=== PATIENT | male | born 1975 | race Caucasian/White ===

== ENCOUNTER → 2017-01-21 | Outpatient (CLI) | payer OTHER ==
[2017-01-21 09:15] LABS: CALCIUM 9.1 mg/dL (8.5-10.1); CREATININE 1.1 mg/dL (0.7-1.3); GFR 73.8; POTASSIUM 4.2 mmol/L (3.5-5.1)
== END | disposition home or self-care (01) ==
LOC: LAB 08:38
PROVIDERS: ATTEND Internal Medicine Cardiovascular Disease
DX: E78.5 Hyperlipidemia, unspecified (principal)
CPT/HCPCS: 36415; 80048; 80061

== ENCOUNTER → 2017-08-05 | Outpatient (CLI) | payer OTHER ==
[2017-08-05 07:43] LABS: CALCIUM 9.4 mg/dL (8.5-10.1); CHOLESTEROL/HDL RATIO 6.5; CREATININE 1.2 mg/dL (0.7-1.3); GFR 66.4
== END | disposition home or self-care (01) ==
LOC: LAB 07:02
PROVIDERS: ATTEND Internal Medicine Cardiovascular Disease
DX: I10 Essential (primary) hypertension (principal); E78.5 Hyperlipidemia, unspecified
CPT/HCPCS: 36415; 80048; 80061

== ENCOUNTER 2017-09-12 07:16 | Emergency (ER) | payer OTHER ==
[~2017-09-12] VITALS: Ht 188 cm; Wt 122.5 kg
[2017-09-12] MEDS ORDERED: ORPHENADRINE CITRATE 60 MG/2 ML VIAL. IM ONE (07:45)
[2017-09-12] MEDS ORDERED: MORPHINE SULFATE 4 MG/ML DISP.SYRIN. IM ONE (07:45)
[2017-09-12] MEDS ORDERED: IBUP-1060 PO (07:48)
[2017-09-12] MEDS ORDERED: CYCL10TA2 PO (07:48)
[2017-09-12] MEDS ORDERED: HYDR-971 PO (07:48)
--- NOTE | 2017-09-12 07:48 | PHYS DOC ---
Past Medical History Past Medical History: A-Fib, Depression, Hypertension Past Surgical History: Other Additional Past Surgical Histo: shoulder surgery Additional Information: 1 cigarette daily Alcohol Use: None Drug Use: None Adult General Chief Complaint Chief Complaint: BACK PAIN OR INJURY [facility] HPI Patient is a 42 year old male presents to the emergency department with a history of right lower flank pain. Patient states he has been leaning over a car working on it yesterday when he went to get into his car this morning he developed severe right sided back pain. Patient denies loss of bowel or bladder. He is able to cross is his legs without difficulty. Patient has not taken anything for pain and discomfort. Patient appears to have muscle spasms while lying in the bed. Rates pain 08/27 Review of Systems Review of Systems Constitutional: Denies fever or chills [] Eyes: Denies change in visual acuity, redness, or eye pain [] HENT: Denies nasal congestion or sore throat [] Respiratory: Denies cough or shortness of breath [] Cardiovascular: No additional information not addressed in HPI [] GI: Denies abdominal pain, nausea, vomiting, bloody stools or diarrhea [] : Denies dysuria or hematuria [] Musculoskeletal: right lower back pain, denies joint pain Integument: Denies rash or skin lesions [] Neurologic: Denies headache, focal weakness or sensory changes [] Endocrine: Denies polyuria or polydipsia [] Current Medications Current Medications Current Medications Medications (Trade) Dose Ordered Sig/Tremaine Start Time Stop Time Status Last Admin Dose Admin Morphine Sulfate 4 mg 1X ONCE 09/12/17 07:45 09/12/17 07:46 DC 09/12/17 07:50 4 MG Orphenadrine Citrate (Norflex) 60 mg 1X ONCE 09/12/17 07:45 09/12/17 07:46 DC 09/12/17 07:51 60 MG Allergies Allergies Allergies Coded Allergies Type Severity Reaction Last Updated Verified No Known Drug Allergies 09/12/17 No Physical Exam Physical Exam Constitutional: Well developed, well nourished, no acute distress, non-toxic appearance. [] HENT: Normocephalic, atraumatic, bilateral external ears normal, oropharynx moist, no oral exudates, nose normal. [] Eyes: PERRLA, EOMI, conjunctiva normal, no discharge. [] Neck: Normal range of motion, no tenderness, supple, no stridor. [] Cardiovascular:Heart rate regular rhythm, no murmur [] Lungs & Thorax: Bilateral breath sounds clear to auscultation [] Abdomen: Bowel sounds normal, soft, no tenderness, no masses, no pulsatile masses. [] Skin: Warm, dry, no erythema, no rash. [] Back: right lower flank pain, No lumbar spine tenderness noted, no crepitus, no deformity no step-offs noted. Extremities: No tenderness, no cyanosis, no clubbing, ROM intact, no edema. Peripheral pulses 2+ cap refill brisk < 2 seconds. equal strength noted per lower extremities Neurologic: Alert and oriented X 3, normal motor function, normal sensory function, no focal deficits noted. [] Psychologic: Affect normal, judgement normal, mood normal. [] Current Patient Data Vital Signs Vital Signs Date Time Temp Pulse Resp B/P (MAP) Pulse Ox O2 Delivery O2 Flow Rate FiO2 09/12/17 07:56 65 20 126/58 (80) 96 Room Air 09/12/17 07:25 97.7 97.7 EKG EKG [] Radiology/Procedures Radiology/Procedures [] Course & Med Decision Making Course & Med Decision Making Pertinent Labs and Imaging studies reviewed. (See chart for details) Patient has taken his own ibuprofen 800 mg here in the department. Patient is attempting to find a ride home. Norflex and Morphine has been ordered. Patient will be discharged home in stable condition with recommendations for ice packs on 20 minutes and off 20 minutes several times day. Patient will be encouraged to take ibuprofen 800 mg every 8 hours with food. He will be provided with a prescription for ibuprofen, flexeril and norco. Patient was instructed that flexeril and norco will cause drowsiness do not take if you need to be alert and oriented. Patient was recommended to followup with primary care provider in 7-10 days. Signs and symptoms to return to the emergency department has been provided. All questions and concerns have been answered at patients bedside. He was provided with a work note for the next 2 days. Patient agrees with discharge instructions, treatment regimen and followup recommendations. [] Dragon Disclaimer Dragon Disclaimer This electronic medical record was generated, in whole or in part, using a voice recognition dictation system. Departure Departure Impression: Primary Impression: Strain of muscle, fascia and tendon of lower back, initial encounter Disposition: 01 HOME, SELF-CARE Condition: STABLE Referrals: HESHAM CROW MD (PCP) Patient Instructions: Back Pain, Adult, [id number], Muscle Strain, Easy-to- Read Additional Instructions: Activity as tolerated Medication as prescribed Ibuprofen should be taken with food to prevent stomach upset. If you do develop upset stomach please stop taking Flexeril and Pima will both cause drowsiness. Do NOT take if you need to be alert and oriented Ice packs on 20 minutes and off 20 minutes several times a day Followup with your primary care provider in 7-10 days if you continue to have pain Return to emergency department as needed for signs and symptoms that become worse. Scripts Cyclobenzaprine Hcl (CYCLOBENZAPRINE HCL) 10 Mg Tablet 1 TAB PO TID Y for MUSCLE SPASMS, #30 TAB Prov: FOREST RAVI APRN 09/12/17 Ibuprofen (IBUPROFEN) 800 Mg Tablet 800 MG PO PRN Q6HRS Y for INFLAMMATION, #30 TAB Prov: FOREST RAVI APRN 09/12/17 Hydrocodone/Apap 5-325 (NORCO 5-325 TABLET) 1 Each Tablet 1 TAB PO PRN Q6HRS Y for PAIN, #20 TAB 0 Refills Prov: FOREST RAVI APRN 09/12/17 FOREST RAVI APRN Sep 12, 2017 07:48
[2017-09-12 07:56] VITALS: BP 126/58
== END 2017-09-12 08:56 | disposition home or self-care (01) ==
LOC: ER 07:16
DX: S39.012A Strain of muscle, fascia and tendon of lower back, initial encounter (principal); I48.91 Unspecified atrial fibrillation; F32.9 Major depressive disorder, single episode, unspecified; I10 Essential (primary) hypertension; F17.210 Nicotine dependence, cigarettes, uncomplicated; X58.XXXA Exposure to other specified factors, initial encounter; Y93.89 Activity, other specified; Y92.89 Other specified places as the place of occurrence of the external cause; Y99.8 Other external cause status
CPT/HCPCS: 96372; 99284; J2270; J2360

== ENCOUNTER → 2018-09-05 | Outpatient (CLI) | payer OTHER ==
[~2018-09-05] MED LIST: CYCL10TA2 PO; HYDR-971 PO; IBUP-1060 PO
[2018-09-05 07:17] LABS: ALBUMIN 4.1 g/dL (3.4-5.0); CALCIUM 9.4 mg/dL (8.5-10.1); CREATININE 1.1 mg/dL (0.7-1.3); DIRECT BILIRUBIN 0.1 mg/dL (0.0-0.2); GFR 73.1; POTASSIUM 4.2 mmol/L (3.5-5.1); TOTAL BILIRUBIN 0.4 mg/dL (0.2-1.0); TOTAL PROTEIN 7.5 g/dL (6.4-8.2)
[2018-09-05 07:19] LABS: CHOLESTEROL/HDL RATIO 3.9
== END | disposition home or self-care (01) ==
LOC: LAB 06:22
PROVIDERS: ATTEND Internal Medicine Cardiovascular Disease
DX: I10 Essential (primary) hypertension (principal); E78.5 Hyperlipidemia, unspecified
CPT/HCPCS: 36415; 80048; 80061; 80076

== ENCOUNTER 2019-01-12 13:35 | Emergency (ER) | payer OTHER ==
[~2019-01-12] VITALS: Ht 188 cm; Wt 117.9 kg
[~2019-01-12 13:35] MED LIST changes: +HYDR-3164 PO; -HYDR-971 PO
[2019-01-12 13:58] VITALS: BP 169/97
[2019-01-12] MEDS ORDERED: silver sulfADIAZINE 1% CREAM 25GM TUBE. TP ONE ×2 (14:31→14:45)
--- NOTE | 2019-01-12 14:33 | PHYS DOC ---
Past Medical History Past Medical History: A-Fib, Depression, Hypertension Past Surgical History: Other Additional Past Surgical Histo: shoulder surgery Alcohol Use: None Drug Use: None Adult General Chief Complaint Chief Complaint: BURN/SMOKE INHALATION HPI HPI Patient is a 43 year old male who presents with a burn to his right thigh that occurred at approximately 1 hour prior to arrival. The patient was working on a hot water heater/boiler system within some of the boiling water shot out from the tubing striking his thigh. He is a [employer] employee and this is a job- related injury. He is not up-to-date on his tetanus booster. Review of Systems Review of Systems Constitutional: Denies fever or chills [] Respiratory: Denies cough or shortness of breath [] Cardiovascular: No additional information not addressed in HPI [] GI: Denies abdominal pain, nausea, vomiting, bloody stools or diarrhea [] : Denies dysuria or hematuria [] Musculoskeletal: Denies back pain or joint pain [] Integument: See history of present illness Neurologic: Denies headache, focal weakness or sensory changes [] Endocrine: Denies polyuria or polydipsia [] All other systems were reviewed and found to be within normal limits, except as documented in this note. Current Medications Current Medications Current Medications Medications (Trade) Dose Ordered Sig/Tremaine Start Time Stop Time Status Last Admin Dose Admin Diphtheria/ Tetanus/Acell Pertussis (Boostrix) 0.5 ml ONCE ONCE 01/12/19 14:45 01/12/19 14:46 DC 01/12/19 15:02 0.5 ML Silver Sulfadiazine (Silvadene) 1 kale 1X ONCE 01/12/19 14:45 01/12/19 14:46 DC 01/12/19 14:57 1 KALE Allergies Allergies Allergies Coded Allergies Type Severity Reaction Last Updated Verified No Known Drug Allergies 09/12/17 No Physical Exam Physical Exam Constitutional: Well developed, well nourished, no acute distress, non-toxic appearance. [] Cardiovascular:Heart rate regular rhythm, no murmur [] Lungs & Thorax: Bilateral breath sounds clear to auscultation [] Abdomen: Bowel sounds normal, soft, no tenderness, no masses, no pulsatile masses. [] Skin: 8 cm x 7 cm area of erythema with 2 areas that appear to be blisters forming, no break in the skin noted Neurologic: Alert and oriented X 3, normal motor function, normal sensory function, no focal deficits noted. [] Psychologic: Affect normal, judgement normal, mood normal. [] Current Patient Data Vital Signs Vital Signs Date Time Temp Pulse Resp B/P (MAP) Pulse Ox O2 Delivery O2 Flow Rate FiO2 01/12/19 13:58 97.6 93 16 169/97 (121) 97 Room Air 97.6 EKG EKG [] Radiology/Procedures Radiology/Procedures [] Course & Med Decision Making Course & Med Decision Making Pertinent Labs and Imaging studies reviewed. (See chart for details) The patient's wounds were dressed and a tetanus booster was administered in the emergency department. Dragon Disclaimer Dragon Disclaimer This electronic medical record was generated, in whole or in part, using a voice recognition dictation system. Departure Departure Impression: Primary Impression: Burn Additional Impression: Need for tetanus booster Disposition: 01 HOME, SELF-CARE Condition: STABLE Referrals: HESHAM CROW MD (PCP) Patient Instructions: Burn Care Additional Instructions: Use the cream to treat the burned skin. Follow-up with your primary care provider or Workmen's Compensation physician as ordered by the facility. Problem Qualifiers GUEVARA LOPEZ APRN Jan 12, 2019 14:33
[2019-01-12] MEDS ORDERED: DIPHTH,PERTUSS(ACELL),TET TOX 0.5 ML DISP.SYRIN. VAX IM ONE (14:45)
== END 2019-01-12 15:08 | disposition home or self-care (01) ==
LOC: ER 13:35
DX: T24.211A Burn of second degree of right thigh, initial encounter (principal); I10 Essential (primary) hypertension; I48.91 Unspecified atrial fibrillation; X12.XXXA Contact with other hot fluids, initial encounter; Y93.89 Activity, other specified; Y92.69 Other specified industrial and construction area as the place of occurrence of the external cause; Y99.0 Civilian activity done for income or pay
CPT/HCPCS: 16020; 90471; 90715; 99284

== ENCOUNTER → 2019-08-06 | Outpatient (CLI) | payer OTHER ==
[2019-07-23 05:24] VITALS: BP 158/102
[~2019-08-06] MED LIST changes: +METH4TAB2 PO
--- NOTE | 2019-08-06 15:28 | KCIC ---
EXAM: AP, lateral and lumbosacral spot views of the lumbar spine DATE: 08/06/2019 12:00 AM INDICATION: Acute low back pain COMPARISON: No Prior FINDINGS: 6 nonrib-bearing lumbar-type vertebral bodies are seen. Vertebral body heights are preserved. Mild rightward curvature of the lumbar spine. No spondylolisthesis. Mild straightening of the normal lumbar lordosis. Mild L5-S1 disc height loss. Small anterior endplate osteophytes are seen at L1-2, L2-3 and L5-S1. Mild facet degenerative change L2-3 and below. IMPRESSION: 1. Multilevel spondylosis as above 2. Negative acute fracture or subluxation. Electronically signed by: Benji Mendoza MD (08/06/2019 3:26 PM) [facility]
== END | disposition home or self-care (01) ==
LOC: KCIC 08:11
PROVIDERS: ATTEND Nurse Practitioner Gerontology
DX: M47.816 Spondylosis without myelopathy or radiculopathy, lumbar region (principal); M25.78 Osteophyte, vertebrae; M40.46 Postural lordosis, lumbar region
CPT/HCPCS: 72100

== ENCOUNTER → 2019-08-10 | Outpatient (CLI) | payer OTHER ==
[2019-07-23 05:24] VITALS: BP 158/102
--- NOTE | 2019-08-10 12:24 | RAD ---
MRI Lumbar Spine without contrast History: Low back pain, right hip pain for one month Technique: Multiplanar, multi sequential noncontrast MR imaging was performed of the lumbar spine. Comparison: None Findings: Lumbar vertebral body stature is overall maintained. There is minimal grade 1 anterior spondylolisthesis L5-S1. Findings are suspicious for L5 spondylolysis bilaterally although somewhat difficult to accurately evaluate on this exam. Vertebral body stature is overall maintained. There is nonspecific relative decreased signal of the marrow on T1 and T2 sequences, no significant marrow edema. Conus terminates near L1-2. L1-L2: Spinal canal and neural foramina are adequate. There is negligible disc osteophyte complex. L2-L3: There is mild prominence of posterior epidural fat centrally. There is mild facet hypertrophic change. Spinal canal and neural foramina are adequate. There is negligible disc osteophyte complex and bulge. L3-L4: There is negligible disc osteophyte complex. Spinal canal and neural foramina are adequate. There is mild facet degenerative change. L4-L5: There is small extrusion extending slightly above the intervertebral disc space in the right paracentral region, up to about 4 mm greatest AP dimension. There is mild indentation upon the ventral thecal sac greater in the right lateral recess with mild right lateral recess stenosis, near descending right L5 nerve root without significant displacement. Neural foramina are adequate. There is minimal facet degenerative change. L5-S1: Spinal canal is adequate. There is disc osteophyte complex and protrusion in the inferior right neural foramen, contact of the exiting right L5 nerve root in the distal neural foramen and proximal extraforaminal region, overall moderate narrowing of the right neural foramen greater distally. Left neural foramen is adequate. Impression: 1. There is disc osteophyte complex and protrusion in the inferior right L5-S1 neural foramen with contact exiting right L5 nerve root greater in the distal neural foramen and proximal extraforaminal region. There is small extrusion extending above the L4-5 intervertebral disc space in the right paracentral region with mild right lateral recess stenosis, near descending right L5 nerve root. 2. There is relative decreased signal of the marrow on T1 and T2 sequences, nonspecific findings which could be associated with hyperplastic or residual red marrow, not associated with significant marrow edema. 3. Findings are suspicious for L5 spondylolysis although somewhat difficult to accurately evaluate, better assessed with CT if needed. There is negligible anterior spondylolisthesis L5-S1. Electronically signed by: Arden Hinojosa MD (08/10/2019 12:21 PM) [id number]
== END | disposition home or self-care (01) ==
LOC: MRI 08:25
PROVIDERS: ATTEND Nurse Practitioner Gerontology
DX: M43.17 Spondylolisthesis, lumbosacral region (principal); M51.17 Intervertebral disc disorders with radiculopathy, lumbosacral region; M47.26 Other spondylosis with radiculopathy, lumbar region; M25.78 Osteophyte, vertebrae; M25.551 Pain in right hip
CPT/HCPCS: 72148

== ENCOUNTER → 2019-08-27 | Outpatient (CLI) | payer OTHER ==
[2019-07-23 05:24] VITALS: BP 158/102
[~2019-08-27] MED LIST changes: +BUSP5TAB PO; +DILT240C2 PO; +LISI-130 PO
--- NOTE | 2019-08-27 13:13 | PAIN ---
DATE OF SERVICE: 08/27/2019 INITIAL CONSULTATION FOR PAIN CLINIC CHIEF COMPLAINT: Low back and right lower extremity pain. HISTORY OF PRESENT ILLNESS: This is a 44-year-old male who presents with history of pain in the low back and right leg for about 7 years. No specific injury or action he is aware of, but the pain has been worse over the past several months to the point where he has had to decrease his activities at work, although the pain is subsiding with some rest and stretching, which he is doing several times daily. The patient reports it is still significant into the low back, into the right posterior gluteus and posterior thigh. The patient reports it is constant, sharp, stabbing, shooting at times, intermittent in intensity but always present, burning and aching in the low back and right leg. The patient has had chiropractic treatment, which helped as well but was fairly short-lived. The patient reports the pain is less now, mostly feels it only when he is sitting down for long periods of greater than 30-40 minutes. First walking in the morning, the patient reports pain tends to radiate into the groin area as well as into the posterior gluteus and thigh on the right side, worse in the morning once again. The patient reports it occasionally wakes him from sleep more so in the last week or so, has been getting better, does not awaken him over the past several days. It does not affect his bowel or bladder control, but does affect his ability to walk and/or stand or sit for prolonged periods. The patient has tried oral steroids which helped, hydrocodone which does help to a moderate extent, has tried naproxen which does not help significantly at all. The patient did have an MRI scan of the lumbar spine showing disk osteophyte complex and protrusion in the inferior right L5-S1 neural foramen with contact exiting right L5 nerve roots, greater than distal neural foramen and proximal extraforaminal origin with a small extrusion extending above the L4-L5 intervertebral space in the right paracentral region with mild right lateral recess stenosis near the descending right L5 nerve root as well. The patient rates his disability rating from 0-10, 10 being the worst, is a 9 with family, home responsibilities, recreation, social activity and occupational activities, 5 with sexual behavior, 7 with self-care and 0 with life support activities. PAST MEDICAL HISTORY: Significant for hypertension, dizziness, gastroesophageal reflux, atrial fibrillation, hyperlipidemia, arthritis and anxiety. PREVIOUS SURGERY: Includes left shoulder rotator cuff repair. CURRENT MEDICATIONS: Include ibuprofen, Cardizem and lisinopril. ALLERGIES: The patient has no known drug allergies. FAMILY HISTORY: Significant for heart disease. SOCIAL HISTORY: The patient drinks 1-3 alcoholic drinks daily, does not smoke. Not using illegal, illicit or recreational drugs or other tobacco products. He is , lives with his spouse and lives in [place], [place]. 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 REVIEW OF SYSTEMS: The patient's review of systems is positive for those items as mentioned in history of present illness. All systems reviewed and otherwise negative. It is complete, full and well documented on the patient's chart. PHYSICAL EXAMINATION: VITAL SIGNS: The patient's blood pressure is 149/96, pulse 68, respirations 16, temperature 97.6 degrees Fahrenheit, height is 6 feet 2 inches, weight is 279 pounds. GENERAL: The patient is awake, alert, oriented, appropriate, very pleasant demeanor. HEENT: Exam shows normocephalic, atraumatic. Extraocular movements are intact and symmetrical. Oral cavity: Mucous membranes are moist and pink. The patient wears eyeglasses. NECK: Shows anterior throat supple without palpable lymphadenopathy noted. Swallow reflex is symmetrical. CHEST: Shows normal on inspection. Breath sounds clear to auscultation bilaterally. HEART: Shows S1, S2 clear. No murmurs auscultated. ABDOMEN: Soft, nontender, nondistended. No palpable organomegaly is noted. No rebound or guarding demonstrated. BACK: Shows spine grossly in the midline. Slight exaggeration of thoracic kyphosis, some minor flattening of lumbar lordotic curvature. Lumbar paraspinous muscle shows symmetrical on inspection, on palpation shows some moderate tenderness diffusely in the bilateral lower and middle lumbar paraspinous muscles, but only diffusely without radiation. The patient has good rotational motion of lumbar spine, both laterally as well as extension and flexion without significant increase in pain. No tenderness over the spinous processes, sacrum or sacroiliac regions with direct palpation. EXTREMITIES: The patient's lower extremities show deep tendon reflexes 2+ in the patellar, 1+ in tendo-calcaneus tendons. Motor exam is strong with 5/5 dorsiflexion, extension, quadriceps and hamstring flexion and equal bilaterally. Peripheral pulses are 1+ posterior tibia. No peripheral edema is noted. Straight leg raise noted to be negative for reproduction of radicular pain bilaterally as his Gaenslen's and Deric's maneuvers negative bilaterally as well. The patient is able to stand, stand on toes without significant difficulty or loss of balance, walks with normal appearing gait for short distance in the office, not using any assistive devices to ambulate. SKIN: The patient's skin shows warm and dry, good turgor. No edema. No sores, rashes or bruising throughout. IMPRESSION: 1. This is a 44-year-old male with a 7-year history but of low back pain, worse over the past few months radiating to the right lower extremity in a radicular fashion. 2. MRI scan of lumbar spine as noted. 3. Hypertension. 4. Arthritis. PLAN: Options were discussed with the patient including conservative medical managements, physical therapies and interventional techniques. He would like to pursue interventional techniques, but he is doing quite a bit better at this time. I will give him some more time to increase stretching and strengthening exercises, also walking and daily activities. We discussed proper body mechanics with lifting and reaching positioning with requirements at work and the patient will try these first with persistent stretching. We discussed possible physical therapy referral as well as possible epidural steroid injection. The patient will try the stretching and strengthening on his own first and follow up at this point on an as needed basis. SAMMY CASILLAS MD DR: KRISTINA/suzette JOB#: [id number] / [id number] HESHAM Mcdonald MD
== END | disposition home or self-care (01) ==
LOC: PNCL 07:50
PROVIDERS: ATTEND Anesthesiology
DX: M54.16 Radiculopathy, lumbar region (principal); I10 Essential (primary) hypertension; M19.90 Unspecified osteoarthritis, unspecified site
CPT/HCPCS: G0463

== ENCOUNTER 2019-09-01 05:04 | Emergency (ER) | payer OTHER ==
[~2019-09-01] VITALS: Ht 188 cm; Wt 122.5 kg
[~2019-09-01 05:04] MED LIST changes: -BUSP5TAB PO
--- NOTE | 2019-09-01 05:18 | PHYS DOC ---
Past Medical History Past Medical History: A-Fib, Depression, Hypertension Past Surgical History: Other Additional Past Surgical Histo: left rotator cuff repair Alcohol Use: Occasionally Drug Use: None Adult General Chief Complaint Chief Complaint: Palpitations HPI HPI Patient is a 44-year-old male who presents with complaint of palpitations that had started yesterday. Patient states that it felt like his heart was beating out of his chest. He denies any actual chest pain associated with the symptoms. Patient is concerned because he has a history of atrial fibrillation and yesterday he had checked his heart rate and it was running as high as the 120s. Currently he denies any palpitations. He does indicate he has a history of anxiety and is feeling a little bit anxious this morning due to concern about going back in atrial fibrillation.[] Review of Systems Review of Systems Constitutional: Denies fever or chills [] Respiratory: Denies cough or shortness of breath [] Cardiovascular: No additional information not addressed in HPI [] GI: Denies abdominal pain, nausea, vomiting or diarrhea [] Neurologic: Denies headache, focal weakness or sensory changes [] All other systems were reviewed and found to be within normal limits, except as documented in this note. Current Medications Current Medications Current Medications Medications (Trade) Dose Ordered Sig/Tremaine Start Time Stop Time Status Last Admin Dose Admin Ketorolac Tromethamine (Toradol 30mg Vial) 30 mg 1X ONCE 09/01/19 06:00 09/01/19 06:01 09/01/19 05:37 30 MG Allergies Allergies Allergies Coded Allergies Type Severity Reaction Last Updated Verified No Known Drug Allergies 09/12/17 No Physical Exam Physical Exam Constitutional: Well developed, well nourished, no acute distress, non-toxic appearance. [] HENT: Normocephalic, atraumatic, bilateral external ears normal, oropharynx moist, no oral exudates, nose normal. [] Eyes: PERRLA, EOMI, conjunctiva normal, no discharge. [] Neck: Normal range of motion, no tenderness, supple, no stridor. [] Cardiovascular: Regular rate and rhythm[] Lungs & Thorax: Bilateral breath sounds clear to auscultation [] Abdomen: Bowel sounds normal, soft, no tenderness. [] Skin: Warm, dry, no erythema, no rash. [] Extremities: No tenderness, no cyanosis, no clubbing, ROM intact, no edema. [] Neurologic: Alert and oriented X 3, no focal deficits noted. [] Current Patient Data Vital Signs Vital Signs Date Time Temp Pulse Resp B/P (MAP) Pulse Ox O2 Delivery O2 Flow Rate FiO2 09/01/19 05:15 98.1 100 10 163/91 (115) 98 Room Air 98.1 Lab Values Laboratory Tests Test 09/01/19 05:11 White Blood Count 5.7 x10^3/uL (4.0-11.0) Red Blood Count 5.53 x10^6/uL (4.30-5.70) Hemoglobin 16.1 g/dL (13.0-17.5) Hematocrit 46.4 % (39.0-53.0) Mean Corpuscular Volume 84 fL (79-100) Mean Corpuscular Hemoglobin 29 pg (25-35) Mean Corpuscular Hemoglobin Concent 35 g/dL (31-37) Red Cell Distribution Width 13.0 % (11.5-14.5) Platelet Count 271 x10^3/uL (140-400) Neutrophils (%) (Auto) 54 % (31-73) Lymphocytes (%) (Auto) 32 % (24-48) Monocytes (%) (Auto) 14 % (0-9) H Eosinophils (%) (Auto) 1 % (0-3) Basophils (%) (Auto) 1 % (0-3) Neutrophils # (Auto) 3.1 x10^3/uL (1.8-7.7) Lymphocytes # (Auto) 1.8 x10^3/uL (1.0-4.8) Monocytes # (Auto) 0.8 x10^3/uL (0.0-1.1) Eosinophils # (Auto) 0.0 x10^3/uL (0.0-0.7) Basophils # (Auto) 0.0 x10^3/uL (0.0-0.2) Sodium Level 141 mmol/L (136-145) Potassium Level 3.8 mmol/L (3.5-5.1) Chloride Level 103 mmol/L (98-107) Carbon Dioxide Level 30 mmol/L (21-32) Anion Gap 8 (6-14) Blood Urea Nitrogen 15 mg/dL (8-26) Creatinine 1.2 mg/dL (0.7-1.3) Estimated GFR (Cockcroft-Gault) 65.8 BUN/Creatinine Ratio 13 (6-20) Glucose Level 100 mg/dL (70-99) H Calcium Level 9.7 mg/dL (8.5-10.1) Magnesium Level 1.9 mg/dL (1.8-2.4) Total Bilirubin 0.6 mg/dL (0.2-1.0) Aspartate Amino Transferase (AST) 28 U/L (15-37) Alanine Aminotransferase (ALT) 46 U/L (16-63) Alkaline Phosphatase 55 U/L (46-116) Troponin I Quantitative < 0.017 ng/mL (0.000-0.055) Total Protein 8.4 g/dL (6.4-8.2) H Albumin 4.6 g/dL (3.4-5.0) Albumin/Globulin Ratio 1.2 (1.0-1.7) Laboratory Tests 09/01/19 05:11 Laboratory Tests 09/01/19 05:11 EKG EKG [] Interpretation Time: EKG demonstrates normal sinus rhythm with rate of 96. Radiology/Procedures Radiology/Procedures [] Impressions: Chest x-ray demonstrates no acute process. Course & Med Decision Making Course & Med Decision Making Pertinent Labs and Imaging studies reviewed. (See chart for details) [] Dragon Disclaimer Dragon Disclaimer This electronic medical record was generated, in whole or in part, using a voice recognition dictation system. Departure Departure Impression: Primary Impression: Palpitations Additional Impression: Headache Disposition: 01 HOME, SELF-CARE Condition: STABLE Referrals: HESHAM CROW MD (PCP) Patient Instructions: Headache, FAQs, Palpitations Problem Qualifiers Additional Impression: Headache Headache type: tension-type Headache chronicity pattern: unspecified pattern Intractability: not intractable Qualified Codes: G44.209 - Tension-type headache, unspecified, not intractable CARLOS RIVERA Jr. DO Sep 01, 2019 05:18
[2019-09-01 05:23] LABS: BASO % 1 % (0-3); EOS % 1 % (0-3); HEMATOCRIT 46.4 % (39.0-53.0); HEMOGLOBIN 16.1 g/dL (13.0-17.5); LYMPH # 1.8 x10^3/uL (1.0-4.8); LYMPH % 32 % (24-48); MEAN CORPUSCULAR HEMOGLOBIN 29 pg (25-35); MEAN CORPUSCULAR HGB CONC 35 g/dL (31-37); MEAN CORPUSCULAR VOLUME 84 fL (79-100); MONO # 0.8 x10^3/uL (0.0-1.1); MONO % 14 % (0-9); NEUT # 3.1 x10^3/uL (1.8-7.7); NEUT % 54 % (31-73); PLATELET COUNT 271 x10^3/uL (140-400); RED BLOOD COUNT 5.53 x10^6/uL (4.30-5.70); WHITE BLOOD COUNT 5.7 x10^3/uL (4.0-11.0)
[2019-09-01 05:33] LABS: CALCIUM 9.7 mg/dL (8.5-10.1); CREATININE 1.2 mg/dL (0.7-1.3); GFR 65.8; POTASSIUM 3.8 mmol/L (3.5-5.1)
[2019-09-01 05:39] LABS: ALBUMIN 4.6 g/dL (3.4-5.0); ALBUMIN/GLOBULIN RATIO 1.2 (1.0-1.7); MAGNESIUM 1.9 mg/dL (1.8-2.4); TOTAL BILIRUBIN 0.6 mg/dL (0.2-1.0); TOTAL PROTEIN 8.4 g/dL (6.4-8.2)
[2019-09-01 05:40] VITALS: BP 138/78
--- NOTE | 2019-09-01 05:44 | EKG ---
[facility] [address] [place] [address] Test Date: 2019-09-01 Test Time: 05:06:14 Pat Name: CLAIRE CARRILLO Department: Room: Gender: M Hide Paster: : 1975 Requested By: CARLOS RIVERA Order Number: [id number] Reading MD: Measurements Intervals [place] Rate: 96 P: 0 AL: 138 QRS: 92 QRSD: 102 T: 12 QT: 326 QTc: 413 Interpretive Statements SINUS RHYTHM RIGHTWARD AXIS QRS(T) CONTOUR ABNORMALITY CONSIDER ANTEROLATERAL MYOCARDIAL DAMAGE POSSIBLY ABNORMAL ECG RI6.01 No previous ECG available for comparison
[2019-09-01] MEDS ORDERED: KETOROLAC 30 MG/ML VIAL. IVP ONE (06:00)
[2019-09-01] MEDS ORDERED: BUSP5TAB PO (06:01)
--- NOTE | 2019-09-01 06:14 | RAD ---
Chest AP portable at 0547: Reason for examination: Palpitations tonight. The heart size is upper normal. Mediastinum is unremarkable. Lung wiley show multiple small nodules consistent with calcified granuloma. There are no consolidated infiltrates or pleural effusions. No acute bony abnormalities are seen. Impression: Multiple small nodular densities bilaterally consistent with probable granuloma. Electronically signed by: Chrissie Rider MD (09/01/2019 6:12 AM) [facility]
== END 2019-09-01 06:07 | disposition home or self-care (01) ==
LOC: ER 05:04
DX: R00.2 Palpitations (principal); G44.209 Tension-type headache, unspecified, not intractable; F41.9 Anxiety disorder, unspecified; F32.9 Major depressive disorder, single episode, unspecified; I10 Essential (primary) hypertension; I48.91 Unspecified atrial fibrillation
CPT/HCPCS: 36415; 71045; 80053; 83735; 84484; 85025; 93005; 96374; 99285; J1885

== ENCOUNTER → 2020-06-08 | Outpatient (CLI) | payer OTHER ==
[~2020-06-08] MED LIST changes: +BUSP5TAB PO
== END | disposition home or self-care (01) ==
LOC: LAB 13:08
PROVIDERS: ATTEND Internal Medicine Pulmonary Disease
DX: Z20.828 Contact with and (suspected) exposure to other viral communicable diseases (principal)
CPT/HCPCS: U0003-CS

== ENCOUNTER → 2020-07-13 | Outpatient (CLI) | payer OTHER | LOC: LAB 15:35 | PROVIDERS: ATTEND Internal Medicine Pulmonary Disease | DX: U07.1 COVID-19 (principal) | CPT/HCPCS: U0003-CS ==

== ENCOUNTER → 2020-12-15 | Day surgery (SDC) | payer OTHER ==
[~2020-12-15] MED LIST changes: +LIDOCAINE 1%/EPI 1:100,000 20 ML VIAL. INJ ONE
[2020-12-15 10:52] VITALS: BP 143/91
--- NOTE | 2020-12-15 12:51 | PDOC4 ---
Operative Note Operative Note Operative Note: Preoperative Diagnosis: Forehead nodule Postoperative Diagnosis: Same Procedure: Excision of forehead nodule Surgeon: Gamal Anesthesia: Local EBL: 20 mL Specimen: Forehead nodule to pathology Drains: None Complications: None Indication: The patient is a 45-year-old male who is referred with a bothersome left forehead nodule. On exam it seems cystic in nature. He requests excision. The risks of surgery were discussed which include bleeding, infection, recurrence, pain, potential need for additional surgery procedure. He understands and would like to proceed. Description: The patient was taken to the procedure room and placed supine on the table. The left forehead was prepped with Betadine and draped in a standard surgical manner. The skin was infiltrated with 1% lidocaine with epinephrine. An incision was made directly overlying the cystic mass. Sharp dissection was carried down to subcutaneous tissues. The mass was identified and did appear cystic in nature. This was excised from the surrounding tissue with sharp dissection and sent to pathology. The mass measured approximately 1 x 1.5 cm. A few small bleeding spots were controlled with cautery. Hemostasis was then good. The skin was approximated with 4 Monocryl and a Steri-Strip was applied. The patient tolerated the procedure well and was discharged. GISSELLE YORK MD Dec 15, 2020 12:51
--- NOTE | 2020-12-20 08:45 | PATHOLOGY ---
[facility] Accession Number: [id number] . 01 Material submitted: . forehead - FOREHEAD MASS . 01 Clinical history: . EXCISION OF FOREHEAD MASS . 02 Diagnosis: Segments of fibroadipose and skeletal muscle tissue, forehead mass excision: - Lipoma. . ([facility]:mm; 12/19/2020) [facility] 12/19/2020 1622 Local . 02 Comment: There is no evidence of malignancy. . ([facility]:mm; 12/19/2020) . 02 Electronically signed: . David Thompson MD, Pathologist NPI- [id number] . 01 Gross description: . Received in formalin labeled "Capp, Marlon, forehead mass" are 3 fragments of yellow-willis soft tissue measuring in aggregate 2.3 x 1.2 x 0.5 cm. The specimen is submitted entirely without sectioning in A1. ([facility]; 12/17/2020) [facility] 12/18/2020 0824 Local . 02 Pathologist provided ICD-10: D17.39 . 02 CPT . 092186 Specimen Comment: A courtesy copy of this report has been sent to [phone], [phone] Specimen Comment: [id number] Specimen Comment: Report sent to DR YORK / DR CROW Performed at: 01 [facility] [address], [place] [id number] MD Dionisio Sharp MD Phone: [phone] Performed at: 02 [facility] [address] [place], [place] [id number] MD David Thompson MD Phone: [phone]
== END | disposition home or self-care (01) ==
LOC: SURG 10:09
PROVIDERS: ATTEND Surgery
DX: R22.0 Localized swelling, mass and lump, head (principal); D17.39 Benign lipomatous neoplasm of skin and subcutaneous tissue of other sites; I48.91 Unspecified atrial fibrillation; I10 Essential (primary) hypertension; K21.9 Gastro-esophageal reflux disease without esophagitis; M19.90 Unspecified osteoarthritis, unspecified site; F41.9 Anxiety disorder, unspecified; Z87.891 Personal history of nicotine dependence; Z20.822 Contact with and (suspected) exposure to COVID-19; Z79.899 Other long term (current) drug therapy; Z98.890 Other specified postprocedural states; Z72.89 Other problems related to lifestyle
CPT/HCPCS: 21011; 87426; 88304; C9803; J3490; U0003

== ENCOUNTER 2021-02-07 13:00 | Emergency (ER) | payer OTHER ==
[~2021-02-07] VITALS: Ht 188 cm; Wt 126.0 kg
[~2021-02-07 13:00] MED LIST changes: -LIDOCAINE 1%/EPI 1:100,000 20 ML VIAL. INJ ONE
[2021-02-07 13:42] LABS: BASO % 1 % (0-3); EOS % 1 % (0-3); HEMATOCRIT 42.6 % (39.0-53.0); HEMOGLOBIN 14.4 g/dL (13.0-17.5); LYMPH # 1.8 x10^3/uL (1.0-4.8); LYMPH % 26 % (24-48); MEAN CORPUSCULAR HEMOGLOBIN 29 pg (25-35); MEAN CORPUSCULAR HGB CONC 34 g/dL (31-37); MEAN CORPUSCULAR VOLUME 84 fL (79-100); MONO # 0.9 x10^3/uL (0.0-1.1); MONO % 13 % (0-9); NEUT % 60 % (31-73); PLATELET COUNT 262 x10^3/uL (140-400); RED BLOOD COUNT 5.05 x10^6/uL (4.30-5.70); RED CELL DISTRIBUTION WIDTH 13.2 % (11.5-14.5); WHITE BLOOD COUNT 6.7 x10^3/uL (4.0-11.0)
[2021-02-07 13:43] LABS: BILIRUBIN,URINE NEGATIVE (NEG); CLARITY,URINE CLEAR; COLOR,URINE YELLOW; NITRITE,URINE NEGATIVE (NEG); PH,URINE 5.5 (<5.0-8.0); PROTEIN,URINE NEGATIVE (NEG-TRACE); UROBILINOGEN,URINE 0.2 mg/dL (0.2 mg/dL)
[2021-02-07 13:52] LABS: HYALINE CASTS, URINE OCCASIONAL /HPF
[2021-02-07 13:54] LABS: RBC,URINE RARE /HPF (0-2); WBC,URINE RARE /HPF (0-4)
[2021-02-07 13:55] LABS: BACTERIA,URINE 0 /HPF (0-FEW)
--- NOTE | 2021-02-07 14:01 | RAD ---
AP chest. HISTORY: Chest pain AP view was taken of the chest. Lungs are clear. Heart is normal in size. There is no pleural effusio n. There are granulomatous calcifications. 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 IMPRESSION: 1. No acute chest disease. Electronically signed by: Hernan Kim MD (02/07/2021 1:58 PM) [facility]
[2021-02-07 14:03] LABS: CALCIUM 8.8 mg/dL (8.5-10.1); CREATININE 1.8 mg/dL (0.7-1.3); POTASSIUM 3.9 mmol/L (3.5-5.1)
[2021-02-07 14:15] LABS: ALBUMIN 4.2 g/dL (3.4-5.0); ALBUMIN/GLOBULIN RATIO 1.2 (1.0-1.7); MAGNESIUM 2.1 mg/dL (1.8-2.4); TOTAL BILIRUBIN 0.4 mg/dL (0.2-1.0); TOTAL PROTEIN 7.8 g/dL (6.4-8.2)
[2021-02-07] MEDS ORDERED: IV NORMAL SALINE 1000ML BAG 1,000 ML IV ONE (14:30)
[2021-02-07 15:15] VITALS: BP 132/73
--- NOTE | 2021-02-07 15:18 | PHYS DOC ---
Past Medical History Past Medical History: A-Fib, Anxiety, Depression, Hypertension Past Surgical History: Other Additional Past Surgical Histo: left rotator cuff repair Smoking Status: Never Smoker Alcohol Use: Occasionally Drug Use: None General Adult EDM: Chief Complaint: Palpitations HPI: HPI: Patient is a 45 year old male who presented to ER due to heart palpitation and tingling sensation in his fingers for the last 2 weeks. Patient has been working out lately, lifting heavy weight, taking supplements. Patient denies any chest pain, denies any trouble breathing, denies any headache, denies any abdominal pain, no neck pain. Review of Systems: Review of Systems: Constitutional: Denies fever or chills. [] Eyes: Denies change in visual acuity. [] HENT: Denies nasal congestion or sore throat. [] Respiratory: Denies cough or shortness of breath. [] Cardiovascular: Denies chest pain or edema. Positive for heart palpitation GI: Denies abdominal pain, nausea, vomiting, bloody stools or diarrhea. [] : Denies dysuria. [] Musculoskeletal: Denies back pain or joint pain. [] Integument: Denies rash. [] Neurologic: Denies headache, focal weakness or sensory changes. [] Endocrine: Denies polyuria or polydipsia. [] Lymphatic: Denies swollen glands. [] Psychiatric: Denies depression or anxiety. [] Heart Score: C/O Chest Pain: N/A Risk Factors: Risk Factors: DM, Current or recent (<one month) smoker, HTN, HLP, family history of CAD, obesity. Risk Scores: Score 0 - 3: 2.5% MACE over next 6 weeks - Discharge Home Score 4 - 6: 20.3% MACE over next 6 weeks - Admit for Clinical Observation Score 7 - 10: 72.7% MACE over next 6 weeks - Early Invasive Strategies Current Medications: Current Medications Medications (Trade) Dose Ordered Sig/Tremaine Start Time Stop Time Status Last Admin Dose Admin Sodium Chloride 1,000 ml @ 1,000 mls/hr 1X ONCE 02/07/21 14:30 02/07/21 15:29 02/07/21 14:28 1,000 MLS/HR Allergies: Allergies: Allergies Coded Allergies Type Severity Reaction Last Updated Verified No Known Drug Allergies 12/15/20 No Physical Exam: PE: Constitutional: Well developed, well nourished, no acute distress, non-toxic appearance. [] HENT: Normocephalic, atraumatic, bilateral external ears normal, oropharynx moist, no oral exudates, nose normal. [] Eyes: PERRLA, EOMI, conjunctiva normal, no discharge. [] Neck: Normal range of motion, no tenderness, supple, no stridor. [] Cardiovascular:Heart rate regular rhythm, no murmur [] Lungs & Thorax: Bilateral breath sounds clear to auscultation [] Abdomen: Bowel sounds normal, soft, no tenderness, no masses, no pulsatile masses. [] Skin: Warm, dry, no erythema, no rash. [] Back: No tenderness, no CVA tenderness. [] Extremities: No tenderness, no cyanosis, no clubbing, ROM intact, no edema. [] Neurologic: Alert and oriented X 3, normal motor function, normal sensory function, no focal deficits noted. [] Psychologic: Affect normal, judgement normal, mood normal. [] Current Patient Data: Labs: Laboratory Tests Test 02/07/21 13:25 White Blood Count 6.7 x10^3/uL (4.0-11.0) Red Blood Count 5.05 x10^6/uL (4.30-5.70) Hemoglobin 14.4 g/dL (13.0-17.5) Hematocrit 42.6 % (39.0-53.0) Mean Corpuscular Volume 84 fL (79-100) Mean Corpuscular Hemoglobin 29 pg (25-35) Mean Corpuscular Hemoglobin Concent 34 g/dL (31-37) Red Cell Distribution Width 13.2 % (11.5-14.5) Platelet Count 262 x10^3/uL (140-400) Neutrophils (%) (Auto) 60 % (31-73) Lymphocytes (%) (Auto) 26 % (24-48) Monocytes (%) (Auto) 13 % (0-9) H Eosinophils (%) (Auto) 1 % (0-3) Basophils (%) (Auto) 1 % (0-3) Neutrophils # (Auto) 4.0 x10^3/uL (1.8-7.7) Lymphocytes # (Auto) 1.8 x10^3/uL (1.0-4.8) Monocytes # (Auto) 0.9 x10^3/uL (0.0-1.1) Eosinophils # (Auto) 0.0 x10^3/uL (0.0-0.7) Basophils # (Auto) 0.0 x10^3/uL (0.0-0.2) Urine Collection Type Unknown Urine Color Yellow Urine Clarity Clear Urine pH 5.5 (<5.0-8.0) Urine Specific [place] 1.025 (1.000-1.030) Urine Protein Negative mg/dL (NEG-TRACE) Urine Glucose (UA) Negative mg/dL (NEG) Urine Ketones (Stick) Negative mg/dL (NEG) Urine Blood Negative (NEG) Urine Nitrite Negative (NEG) Urine Bilirubin Negative (NEG) Urine Urobilinogen Dipstick 0.2 mg/dL (0.2 mg/dL) Urine Leukocyte Esterase Negative (NEG) Urine RBC Rare /HPF (0-2) Urine WBC Rare /HPF (0-4) Urine Squamous Epithelial Cells Few /LPF Urine Bacteria 0 /HPF (0-FEW) Urine Hyaline Casts Occasional /HPF Urine Mucus Slight /LPF Sodium Level 139 mmol/L (136-145) Potassium Level 3.9 mmol/L (3.5-5.1) Chloride Level 103 mmol/L (98-107) Carbon Dioxide Level 28 mmol/L (21-32) Anion Gap 8 (6-14) Blood Urea Nitrogen 19 mg/dL (8-26) Creatinine 1.8 mg/dL (0.7-1.3) H Estimated GFR (Cockcroft-Gault) 41.0 BUN/Creatinine Ratio 11 (6-20) Glucose Level 99 mg/dL (70-99) Calcium Level 8.8 mg/dL (8.5-10.1) Magnesium Level 2.1 mg/dL (1.8-2.4) Total Bilirubin 0.4 mg/dL (0.2-1.0) Aspartate Amino Transferase (AST) 68 U/L (15-37) H Alanine Aminotransferase (ALT) 59 U/L (16-63) Alkaline Phosphatase 64 U/L (46-116) Troponin I Quantitative < 0.017 ng/mL (0.000-0.055) IN-Qwp-Z-Type Natriuretic Peptide 27 pg/mL (0-124) Total Protein 7.8 g/dL (6.4-8.2) Albumin 4.2 g/dL (3.4-5.0) Albumin/Globulin Ratio 1.2 (1.0-1.7) Lipase 136 U/L (73-393) Laboratory Tests 02/07/21 13:25 Laboratory Tests 02/07/21 13:25 Vital Signs: Vital Signs Date Time Temp Pulse Resp B/P (MAP) Pulse Ox O2 Delivery O2 Flow Rate FiO2 02/07/21 13:10 98.2 95 20 159/97 (117) 96 Room Air 98.2 EKG: EKG: [] Radiology/Procedures: Radiology/Procedures: [][facility] [address] [place] [address] IMAGING REPORT Signed PATIENT: CLAIRE CARRILLO ACCOUNT: [id number] : 1975 LOCATION: ER AGE: 45 SEX: M EXAM STATUS: REG ER ORD. PHYSICIAN: WILMER SERRATO DO REASON: CHEST PAIN PROCEDURE: PORTABLE CHEST 1V AP chest. HISTORY: Chest pain AP view was taken of the chest. Lungs are clear. Heart is normal in size. There is no pleural effusion. There are granulomatous calcifications. 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 IMPRESSION: 1. No acute chest disease. Electronically signed by: Hernan Kim MD (02/07/2021 1:58 PM) [facility] DICTATED and SIGNED BY: HERNAN KIM MD DATE: 02/07/21 [id number] 0 Course & Med Decision Making: Course & Med Decision Making Pertinent Labs and Imaging studies reviewed. (See chart for details) Patient is a 45-year-old male who presented to ER due to heart palpitation and left hand tingling sensation, he will woke up in the ER did not show any acute problem. Patient will be discharged home, he will need to follow-up with family physician for reevaluation. Patient has been lifting heavy weight, taking supplement protein, affecting his kidney function. Patient was given IV fluid in ER. Dragon Disclaimer: Dragon Disclaimer: This electronic medical record was generated, in whole or in part, using a voice recognition dictation system. Departure Departure Impression: Primary Impression: Heart palpitations Additional Impression: Acute renal insufficiency Disposition: 01 DC HOME SELF CARE/HOMELESS Condition: STABLE Referrals: HESHAM CROW MD (PCP) follow up with your doctor as needed Patient Instructions: Acute Kidney Injury, Palpitations Additional Instructions: Thank you for visiting our Emergency Department. We appreciate you trusting us with your care. If any additional problems come up don't hesitate to return to visit us. Please follow up with your primary care provider so they can plan additional care if needed and know about the problem that you had. If symptoms worsen come back to the Emergency Department. Any concerning symptoms that start such as chest pain, shortness of air, weakness or numbness on one side of the body, running high fevers or any other concerning symptoms return to the ER. WILMER SERRATO DO Feb 07, 2021 15:18
--- NOTE | 2021-02-07 15:28 | EKG ---
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
== END 2021-02-07 15:30 | disposition home or self-care (01) ==
LOC: ER 13:00
DX: R00.2 Palpitations (principal); N28.9 Disorder of kidney and ureter, unspecified; R20.2 Paresthesia of skin; I48.20 Chronic atrial fibrillation, unspecified; F41.9 Anxiety disorder, unspecified; F32.9 Major depressive disorder, single episode, unspecified; I10 Essential (primary) hypertension; Z98.890 Other specified postprocedural states
CPT/HCPCS: 36415; 71045; 80053; 81001; 83690; 83735; 83880; 84484; 85025; 93005; 96360; 99285; J7030

== ENCOUNTER → 2021-02-16 | Outpatient (CLI) | payer OTHER ==
[2021-02-07 15:15] VITALS: BP 132/73
--- NOTE | 2021-02-16 17:47 | KCIC ---
Three-view right knee radiographs 02/16/2021 CLINICAL HISTORY: Worsening chronic right knee pain. Standing AP, lateral and sunrise radiographs the right knee were obtained. No fracture or dislocation right knee is seen. Very mild degenerative changes are seen involving the medial and patellofemoral compartments of the right knee consisting of mild joint compartment narrowing, subchondral sclerosis and associated osteophyte formation. IMPRESSION: Very mild degenerative changes are seen involving the right knee as discussed above. No a cute osseous abnormality is seen. Electronically signed by: Favio Kirk MD (02/16/2021 5:45 PM) [id number]
== END ==
LOC: KCIC 11:27
PROVIDERS: ATTEND Nurse Practitioner Gerontology
DX: M17.11 Unilateral primary osteoarthritis, right knee (principal)
CPT/HCPCS: 73562

== ENCOUNTER → 2021-05-30 | Outpatient (CLI) | payer OTHER ==
--- NOTE | 2021-05-30 17:00 | RAD ---
EXAMINATION: MRI RIGHT LOWER EXTREMITY JOINT WITHOUT INDICATIONS: Acute right knee pain. TECHNIQUE: Multiplanar multisequence MRI of the right knee was obtained without contrast. COMPARISON: Right knee radiograph 02/16/2021 FINDINGS: MENISCI: There is increased signal in the posterior root medial meniscus without discrete tear. Mild marrow edema in the tibial plateau near the attachment of the posterior root medial meniscus. Interm ediate intrasubstance signal in the posterior horn of the medial meniscus without extension to the high rface is likely mucoid degeneration. The lateral meniscus is intact. LIGAMENTS: The anterior and posterior cruciate ligaments are intact. The medial collateral ligament and lateral collateral ligament complex are intact. EXTENSOR MECHANISM: The quadriceps and patellar tendons are intact. Fat pads are normal. Retinacula are intact. BONES AND CARTILAGE: No acute fracture. Marrow signal is normal. Cartilage is intact. OTHER: Muscles and remaining tendons are intact. No joint effusion. There is mild prepatellar and sup erficial infrapatellar bursitis. Leaking Slade cyst. IMPRESSION: 1. Increased signal at the posterior root medial meniscus with mild adjacent marrow edema. This may r eflect meniscal fraying or synovitis. There is no discrete meniscal tear. 2. Mild prepatellar and superficial infrapatellar bursitis. 3. Leaking or ruptured Slade cyst. Electronically signed by: Shelbie Madrigal MD (05/30/2021 4:58 PM) [id number]
== END ==
LOC: MRI 09:59
PROVIDERS: ATTEND Nurse Practitioner Gerontology
DX: M71.561 Other bursitis, not elsewhere classified, right knee (principal); R60.9 Edema, unspecified
CPT/HCPCS: 73721

== ENCOUNTER → 2021-08-18 | Outpatient (CLI) | payer OTHER ==
[2021-08-18 09:14] LABS: ALBUMIN 4.4 g/dL (3.4-5.0); CALCIUM 9.2 mg/dL (8.5-10.1); CREATININE 1.2 mg/dL (0.7-1.3); DIRECT BILIRUBIN 0.1 mg/dL (0.0-0.2); GFR 65.2; POTASSIUM 4.4 mmol/L (3.5-5.1); TOTAL BILIRUBIN 0.5 mg/dL (0.2-1.0); TOTAL PROTEIN 7.9 g/dL (6.4-8.2)
[2021-08-18 09:15] LABS: CHOLESTEROL/HDL RATIO 6.3
== END ==
LOC: LAB 08:31
PROVIDERS: ATTEND Internal Medicine Cardiovascular Disease
DX: I10 Essential (primary) hypertension (principal); Z99.2 Dependence on renal dialysis
CPT/HCPCS: 36415; 80048; 80061; 80076